=== PATIENT | male | born 1950 | race Caucasian/White ===

== ENCOUNTER 2016-10-07 12:31 | Inpatient (IN) | payer OTHER ==
[~2016-10-07] VITALS: Ht 170.2 cm; Wt 106.8 kg
[~2016-10-07 12:31] MED LIST: CARVEDILOL25 M1 PO; COMINH INH; GLIPIZIDE10 MG PO; HYDRALAZINE HYD50 MG PO; LASIX40 MG; LIPI20 PO; NEU300 PO; PROTONIX20 MG PO; TRAZODONE HYDR150 MG PO
[2016-10-07] MEDS ORDERED: CLONAZEPAM0.5 MG PO (13:15)
[2016-10-07] MEDS ORDERED: CATAPRES0.1 MG PO (13:16)
[2016-10-07] MEDS ORDERED: CARVEDILOL12.5 M1 PO (13:17)
[2016-10-07] MEDS ORDERED: HYDRALAZINE HCL25 MG PO (13:19)
[2016-10-07 13:51] LABS: BASOPHIL % 0.4 % (0-2); PLATELET COUNT 302 x10^3mcL (130-400)
[2016-10-07 13:59] LABS: CARBON DIOXIDE 32.1 mmol/L (21-32); POTASSIUM SERUM 4.3 mmol/L (3.5-5.1)
[2016-10-07 14:01] LABS: ALBUMIN 2.6 g/dL (3.4-5.0); BILIRUBIN TOTAL 0.22 mg/dL (0.20-1.00); TOTAL PROTEIN, SERUM 6.7 g/dL (6.4-8.2)
[2016-10-07 14:02] LABS: CALCIUM 5.5 mg/dL (8.5-10.1); CREATININE SERUM 5.1 mg/dL (0.7-1.3)
[2016-10-07 15:54] LABS: microscopic required? YES; urine erythrocyte 1+ (NEGATIVE)
[2016-10-07 16:09] LABS: T3 TOTAL 0.43 ng/mL
[2016-10-07 16:19] VITALS: BP 206/107
[2016-10-07 16:29] VITALS: Ht 170.2 cm; Wt 106.8 kg
[2016-10-07 16:37] LABS: AMPHETAMINE QUAL UR NONE DETECTED (NEG <=1000)
[2016-10-07 16:44] LABS: CHOLESTEROL/HDL RATIO 5.3
[2016-10-07 16:50] LABS: FREE T4 0.8 ng/dL (0.76-1.46); FREE THYROXINE INDEX 1.5 ug/dL (1.4-4.5); T4(THYROXINE) 4.3 ug/dL (4.7-13.3)
[2016-10-07 17:09] LABS: TOTAL IRON BINDING CAPACITY 261 ug/dL (250-450)
[2016-10-07 17:10] LABS: IRON 34 ug/dL (65-170)
[2016-10-07 18:18] VITALS: BP 190/102
[2016-10-07 20:52] VITALS: BP 177/91
[2016-10-07 21:57] VITALS: BP 190/102
[2016-10-08 05:37] VITALS: BP 140/77
[2016-10-08 06:09] LABS: CARBON DIOXIDE 34.1 mmol/L (21-32)
[2016-10-08 06:11] LABS: BASOPHIL % 0.6 % (0-2); PLATELET COUNT 276 x10^3mcL (130-400)
[2016-10-08 06:42] LABS: CREATININE SERUM 5.2 mg/dL (0.7-1.3)
[2016-10-08 06:43] LABS: CALCIUM 5.8 mg/dL (8.5-10.1)
[2016-10-08 06:45] LABS: RED CELL DISTRIBUTION WIDTH 16.4 % (11.5-14.5)
[2016-10-08 09:16] VITALS: BP 151/76
[2016-10-08 13:02] VITALS: BP 154/77
[2016-10-08 16:22] VITALS: BP 174/86
[2016-10-08 21:13] VITALS: BP 172/87
[2016-10-08 23:00] VITALS: BP 150/76
[2016-10-09 06:12] VITALS: BP 160/88
[2016-10-09 07:09] LABS: BASOPHIL % 0.6 % (0-2); PLATELET COUNT 259 x10^3mcL (130-400)
[2016-10-09 07:25] LABS: RED CELL DISTRIBUTION WIDTH 16.6 % (11.5-14.5)
[2016-10-09 07:26] LABS: CARBON DIOXIDE 33.3 mmol/L (21-32)
[2016-10-09 07:29] LABS: CALCIUM 5.8 mg/dL (8.5-10.1); CREATININE SERUM 5.3 mg/dL (0.7-1.3)
[2016-10-09 07:31] LABS: MAGNESIUM 1.9 mg/dL (1.8-2.4); PHOSPHOROUS 6.8 mg/dL (2.5-4.9)
[2016-10-09 09:09] VITALS: BP 150/77
[2016-10-09 17:43] VITALS: BP 127/60
[2016-10-09 22:06] VITALS: BP 164/84
[2016-10-10 06:17] LABS: CALCIUM 6.5 mg/dL (8.5-10.1); CARBON DIOXIDE 31.5 mmol/L (21-32); PHOSPHOROUS 5.9 mg/dL (2.5-4.9); POTASSIUM SERUM 4.3 mmol/L (3.5-5.1)
[2016-10-10 06:34] LABS: CREATININE SERUM 4.4 mg/dL (0.7-1.3)
[2016-10-10 06:47] LABS: BASOPHIL % 0.6 % (0-2); PLATELET COUNT 278 x10^3mcL (130-400)
[2016-10-10 06:51] LABS: RED CELL DISTRIBUTION WIDTH 16.4 % (11.5-14.5)
[2016-10-10 06:55] VITALS: BP 154/76
[2016-10-10 07:14] VITALS: BP 170/82
[2016-10-10 08:46] VITALS: BP 149/70
[2016-10-10 15:07] VITALS: BP 149/70
[2016-10-10 17:00] VITALS: BP 159/77
[2016-10-10 21:35] VITALS: BP 177/86
[2016-10-11 05:55] VITALS: BP 156/76
[2016-10-11 06:29] LABS: CALCIUM 7.6 mg/dL (8.5-10.1); CREATININE SERUM 3.7 mg/dL (0.7-1.3); PHOSPHOROUS 4.6 mg/dL (2.5-4.9); POTASSIUM SERUM 4.3 mmol/L (3.5-5.1)
[2016-10-11 08:02] LABS: BASOPHIL % 0.5 % (0-2); PLATELET COUNT 318 x10^3mcL (130-400); RED CELL DISTRIBUTION WIDTH 16.9 % (11.5-14.5)
[2016-10-11 09:21] VITALS: BP 169/84
[2016-10-11 09:21] LABS: calcium (part of PTHIC) 5.8 mg/dL (8.6-10.2)
[2016-10-11 13:05] VITALS: BP 162/76
[2016-10-11 13:06] VITALS: BP 112/60; BP 162/76
[2016-10-11 18:50] VITALS: BP 183/96
[2016-10-11 22:11] VITALS: BP 139/71
[2016-10-12 05:41] VITALS: BP 171/82
[2016-10-12 06:34] LABS: BASOPHIL % 0.5 % (0-2); PLATELET COUNT 321 x10^3mcL (130-400)
[2016-10-12 06:47] LABS: CARBON DIOXIDE 32.9 mmol/L (21-32); PHOSPHOROUS 3.8 mg/dL (2.5-4.9); POTASSIUM SERUM 4.2 mmol/L (3.5-5.1)
[2016-10-12 06:52] LABS: RED CELL DISTRIBUTION WIDTH 16.6 % (11.5-14.5)
[2016-10-12 10:00] VITALS: BP 137/62
[2016-10-12] MEDS ORDERED: CATAPRES0.1 MG PO (11:09)
[2016-10-12 11:32] LABS: VITAMIN D 25-HYDROXY 9.3 ng/mL (30.0-100.0)
[2016-10-12 17:23] VITALS: BP 126/75
[2016-10-12 17:25] VITALS: BP 126/75
[2016-10-12] MEDS ORDERED: BACO TOP (17:31)
[2016-10-12] MEDS ORDERED: HIBICLENS118 ML TOP (17:32)
[2016-10-12] MEDS ORDERED: TRAZODONE150 M1 PO (17:57)
== END 2016-10-12 19:05 | disposition home or self-care (01) | DRG 291 ==
LOC: ED 12:31 → DU 15:14 → MU 15:14 → DU 16:01 → MU 10-08 09:59
PROVIDERS: Emergency Medicine; Family Medicine; Internal Medicine; Internal Medicine Nephrology; Surgery; ADMIT Family Medicine
PROC: 05HM33Z Insertion of Infusion Device into Right Internal Jugular Vein, Percutaneous Approach (ICD-10-PCS; 2016-10-08)
PROC: B543ZZA Ultrasonography of Right Jugular Veins, Guidance (ICD-10-PCS; 2016-10-08)
PROC: B513ZZA Fluoroscopy of Right Jugular Veins, Guidance (ICD-10-PCS; 2016-10-11)
PROC: 05PYX3Z Removal of Infusion Device from Upper Vein, External Approach (ICD-10-PCS; 2016-10-11)
PROC: 05HM33Z Insertion of Infusion Device into Right Internal Jugular Vein, Percutaneous Approach (ICD-10-PCS; principal; 2016-10-11 16:30)
DX: I13.0 Hypertensive heart and chronic kidney disease with heart failure and stage 1 through stage 4 chronic kidney disease, or unspecified chronic kidney disease (principal); I50.43 Acute on chronic combined systolic (congestive) and diastolic (congestive) heart failure; N17.0 Acute kidney failure with tubular necrosis; E43 Unspecified severe protein-calorie malnutrition; N18.5 Chronic kidney disease, stage 5; D68.69 Other thrombophilia; E11.51 Type 2 diabetes mellitus with diabetic peripheral angiopathy without gangrene; E11.42 Type 2 diabetes mellitus with diabetic polyneuropathy; E11.65 Type 2 diabetes mellitus with hyperglycemia; E83.51 Hypocalcemia; I16.0 Hypertensive urgency; E78.5 Hyperlipidemia, unspecified; R31.9 Hematuria, unspecified; K21.9 Gastro-esophageal reflux disease without esophagitis; G47.00 Insomnia, unspecified; I87.2 Venous insufficiency (chronic) (peripheral); Z99.2 Dependence on renal dialysis; Z68.36 Body mass index [BMI] 36.0-36.9, adult; Z89.512 Acquired absence of left leg below knee; Z79.84 Long term (current) use of oral hypoglycemic drugs
CPT/HCPCS: 80307; 82962; 83880; 84439; 86580; 94150; A4301; C9113; J0610; J0885-EC; J1170; J1642; J1644; J1940; J2001; J2060; J2704; J3010; J3490; J7030; J7620; P9016; Q0092; Q0163

== ENCOUNTER 2017-01-11 17:10 | Inpatient (IN) | payer OTHER, MEDICAID ==
[~2017-01-11] VITALS: Ht 170.2 cm; Wt 124.7 kg
[~2017-01-11 17:10] MED LIST changes: +BACO TOP; +CARVEDILOL12.5 M1 PO; +CATAPRES0.1 MG PO; +CLONAZEPAM0.5 MG PO; +HIBICLENS118 ML TOP; +HYDRALAZINE HCL25 MG PO; +TRAZODONE150 M1 PO
[2017-01-11 17:58] LABS: PLATELET COUNT 293 x10^3mcL (130-400)
[2017-01-11 18:17] LABS: BILIRUBIN TOTAL 0.41 mg/dL (0.20-1.00); CALCIUM 7.1 mg/dL (8.5-10.1); CARBON DIOXIDE 27.3 mmol/L (21-32)
[2017-01-11 18:20] LABS: ALBUMIN 2.9 g/dL (3.4-5.0)
[2017-01-11 18:22] LABS: POTASSIUM SERUM 5.8 mmol/L (3.5-5.1)
[2017-01-11 18:23] LABS: CREATININE SERUM 4.1 mg/dL (0.7-1.3)
[2017-01-11 19:11] LABS: BAND NEUTROPHIL 19 % (0-10); BASOPHIL 0 % (0-2); MONOCYTE 4 % (0-7); SEGMENTED NEUTROPHILS 75 % (37-75)
[2017-01-11 19:12] LABS: rbc morphology (normal/abnorm) ABNORMAL (NORMAL)
[2017-01-11 19:13] LABS: target cell (codocyte) 1+
[2017-01-11] MEDS ORDERED: HYDRALAZINE HCL25 MG PO (19:57)
[2017-01-11] MEDS ORDERED: CATAPRES0.1 MG PO (19:57)
[2017-01-11 21:38] VITALS: BP 124/56
[2017-01-11 21:52] LABS: MAGNESIUM 1.6 mg/dL (1.8-2.4); PHOSPHOROUS 3.2 mg/dL (2.5-4.9)
[2017-01-11 21:53] LABS: CHOLESTEROL/HDL RATIO 2.9
[2017-01-11 21:59] VITALS: BP 124/56
[2017-01-11 22:00] LABS: FREE T4 0.76 ng/dL (0.76-1.46)
[2017-01-11 22:02] LABS: FREE THYROXINE INDEX 1.3 ug/dL (1.4-4.5)
[2017-01-12 04:35] LABS: UA SPECIFIC GRAVITY 1.015 (1.005-1.035); microscopic required? YES; urine erythrocyte 2+ (NEGATIVE)
[2017-01-12 06:06] VITALS: BP 138/68
[2017-01-12 06:34] LABS: CARBON DIOXIDE 28.3 mmol/L (21-32); MAGNESIUM 1.8 mg/dL (1.8-2.4); POTASSIUM SERUM 5.1 mmol/L (3.5-5.1)
[2017-01-12 10:18] VITALS: BP 123/63
[2017-01-12 12:02] LABS: T3 TOTAL 0.46 ng/mL
[2017-01-12 14:20] VITALS: BP 117/64
[2017-01-12 17:36] VITALS: BP 121/64
[2017-01-12 22:24] VITALS: BP 137/83
[2017-01-13 06:54] LABS: CALCIUM 7.4 mg/dL (8.5-10.1); CARBON DIOXIDE 25.4 mmol/L (21-32); CREATININE SERUM 3.4 mg/dL (0.7-1.3); POTASSIUM SERUM 4.9 mmol/L (3.5-5.1)
[2017-01-13 07:00] VITALS: BP 122/78
[2017-01-13 09:00] VITALS: BP 137/73
[2017-01-13 10:44] VITALS: BP 144/69
[2017-01-13 13:45] VITALS: BP 140/81
[2017-01-13 14:51] LABS: BASOPHIL % 0.5 % (0-2); PLATELET COUNT 201 x10^3mcL (130-400); RED CELL DISTRIBUTION WIDTH 14.8 % (11.5-14.5)
[2017-01-13] MEDS ORDERED: GLIPIZIDE10 M2 PO (18:00)
[2017-01-13] MEDS ORDERED: NOVAPLUS CLINDA1 SO1 IV (19:22)
[2017-01-13] MEDS ORDERED: LAC PO (19:22)
[2017-01-13] MEDS ORDERED: LEVOFLOXACIN I100 ML IV ×2 (19:22→19:27)
[2017-01-13 19:31] VITALS: BP 156/80
== END 2017-01-13 20:22 | DRG 871 ==
LOC: ED 17:10 → DU 20:54
PROVIDERS: Emergency Medicine; ADMIT Family Medicine
DX: A41.9 Sepsis, unspecified organism (principal); N18.6 End stage renal disease; I50.43 Acute on chronic combined systolic (congestive) and diastolic (congestive) heart failure; N17.0 Acute kidney failure with tubular necrosis; E43 Unspecified severe protein-calorie malnutrition; E87.1 Hypo-osmolality and hyponatremia; I13.2 Hypertensive heart and chronic kidney disease with heart failure and with stage 5 chronic kidney disease, or end stage renal disease; L03.115 Cellulitis of right lower limb; Z68.41 Body mass index [BMI] 40.0-44.9, adult; R65.20 Severe sepsis without septic shock; B96.20 Unspecified Escherichia coli [E. coli] as the cause of diseases classified elsewhere; E87.5 Hyperkalemia; E11.51 Type 2 diabetes mellitus with diabetic peripheral angiopathy without gangrene; E11.65 Type 2 diabetes mellitus with hyperglycemia; E11.40 Type 2 diabetes mellitus with diabetic neuropathy, unspecified; L89.321 Pressure ulcer of left buttock, stage 1; L89.311 Pressure ulcer of right buttock, stage 1; D63.8 Anemia in other chronic diseases classified elsewhere; K21.9 Gastro-esophageal reflux disease without esophagitis; G47.00 Insomnia, unspecified; E83.51 Hypocalcemia; Z89.512 Acquired absence of left leg below knee; Z99.2 Dependence on renal dialysis; Z79.84 Long term (current) use of oral hypoglycemic drugs
CPT/HCPCS: 82962; 83880; 84439; 97110-GP; 97116-GP; 97530-GP; J1956; J2405; J3490; J7030; J7040; Q0092

== ENCOUNTER 2017-06-11 12:48 | Emergency (ER) | payer OTHER ==
[~2017-06-11] VITALS: Ht 170.2 cm; Wt 102.0 kg
[~2017-06-11 12:48] MED LIST changes: +GLIPIZIDE10 M2 PO; +LAC PO; +LEVOFLOXACIN I100 ML IV; +NOVAPLUS CLINDA1 SO1 IV
[2017-06-11 12:51] VITALS: Ht 170.2 cm; Wt 102.0 kg
[2017-06-11 17:02] VITALS: BP 161/54
== END 2017-06-11 17:07 | disposition home or self-care (01) ==
LOC: ED 12:48
DX: S40.012A Contusion of left shoulder, initial encounter (principal); S09.90XA Unspecified injury of head, initial encounter; R11.2 Nausea with vomiting, unspecified; E11.40 Type 2 diabetes mellitus with diabetic neuropathy, unspecified; I10 Essential (primary) hypertension; Z88.1 Allergy status to other antibiotic agents; Z88.5 Allergy status to narcotic agent; Z99.2 Dependence on renal dialysis; V87.8XXA Person injured in other specified noncollision transport accidents involving motor vehicle (traffic), initial encounter; Y99.8 Other external cause status; Y93.55 Activity, bike riding; Y92.89 Other specified places as the place of occurrence of the external cause
CPT/HCPCS: Q0092

== ENCOUNTER 2018-06-25 16:46 | Inpatient (IN) | payer OTHER ==
[~2018-06-25] VITALS: Ht 170.2 cm; Wt 110.4 kg
[2018-06-25 19:41] VITALS: Ht 170.2 cm; Wt 110.4 kg
[2018-06-25 21:20] LABS: BILIRUBIN TOTAL 0.2 mg/dL (0.20-1.00); CALCIUM 6.8 mg/dL (8.5-10.1); CARBON DIOXIDE 26.3 mmol/L (21-32); TOTAL PROTEIN, SERUM 8.1 g/dL (6.4-8.2)
[2018-06-25 21:25] LABS: BASOPHIL % 0.2 % (0-2); PLATELET COUNT 254 x10^3mcL (130-400)
[2018-06-25 21:26] LABS: RED CELL DISTRIBUTION WIDTH 14.8 % (11.5-14.5)
[2018-06-25 21:27] LABS: ALBUMIN 3.2 g/dL (3.4-5.0); CREATININE SERUM 8.8 mg/dL (0.7-1.3); POTASSIUM SERUM 5.6 mmol/L (3.5-5.1)
[2018-06-25] MEDS ORDERED: AMLODIPINE BESYL5 M2 PO (22:04)
[2018-06-25] MEDS ORDERED: HYDRALAZINE HCL25 MG PO (22:05)
[2018-06-25] MEDS ORDERED: JANUVIA100 M1 PO (22:05)
[2018-06-26 00:24] VITALS: BP 155/70
[2018-06-26 05:32] VITALS: BP 126/63
[2018-06-26 06:26] LABS: BASOPHIL % 0.4 % (0-2); PLATELET COUNT 239 x10^3mcL (130-400)
[2018-06-26 06:39] LABS: RED CELL DISTRIBUTION WIDTH 14.6 % (11.5-14.5)
[2018-06-26 07:17] LABS: CALCIUM 6.6 mg/dL (8.5-10.1); CARBON DIOXIDE 26.5 mmol/L (21-32); MAGNESIUM 2.5 mg/dL (1.8-2.4); PHOSPHOROUS 8.2 mg/dL (2.5-4.9); POTASSIUM SERUM 4.4 mmol/L (3.5-5.1)
[2018-06-26 07:33] LABS: CREATININE SERUM 8.9 mg/dL (0.7-1.3)
[2018-06-26 09:29] VITALS: BP 102/67
[2018-06-26 13:14] VITALS: BP 172/81
[2018-06-26 16:51] VITALS: BP 190/98
[2018-06-26 21:24] VITALS: BP 107/71
[2018-06-27 06:12] VITALS: BP 121/90
[2018-06-27 09:48] VITALS: BP 116/51; BP 160/72
[2018-06-27 12:13] VITALS: BP 141/69
[2018-06-27 15:00] VITALS: BP 148/58
== END 2018-06-27 15:42 | disposition home or self-care (01) | DRG 280 ==
LOC: ED 16:46 → DU 23:34
PROVIDERS: Emergency Medicine; Internal Medicine Nephrology; ADMIT Internal Medicine
PROC: 5A1D70Z Performance of Urinary Filtration, Intermittent, Less than 6 Hours Per Day (ICD-10-PCS; principal; 2018-06-26)
PROC: 5A1D70Z Performance of Urinary Filtration, Intermittent, Less than 6 Hours Per Day (ICD-10-PCS; 2018-06-27)
DX: I21.4 Non-ST elevation (NSTEMI) myocardial infarction (principal); N18.6 End stage renal disease; I13.11 Hypertensive heart and chronic kidney disease without heart failure, with stage 5 chronic kidney disease, or end stage renal disease; E11.22 Type 2 diabetes mellitus with diabetic chronic kidney disease; E87.5 Hyperkalemia; I25.10 Atherosclerotic heart disease of native coronary artery without angina pectoris; Z99.2 Dependence on renal dialysis; Z91.15 Patient's noncompliance with renal dialysis
CPT/HCPCS: 82962; J2405; J2765; J7030; Q0092

== ENCOUNTER 2018-07-09 13:36 | Emergency (ER) | payer OTHER ==
[~2018-07-09] VITALS: Ht 172.7 cm; Wt 108.0 kg
[~2018-07-09 13:36] MED LIST changes: +AMLODIPINE BESYL5 M2 PO; +JANUVIA100 M1 PO
[2018-07-09 13:52] VITALS: Ht 172.7 cm; Wt 108.0 kg
[2018-07-09 17:54] VITALS: BP 184/88
== END 2018-07-09 17:54 | disposition home or self-care (01) ==
LOC: ED 13:36
DX: S39.012A Strain of muscle, fascia and tendon of lower back, initial encounter (principal); S16.1XXA Strain of muscle, fascia and tendon at neck level, initial encounter; S09.8XXA Other specified injuries of head, initial encounter; E11.40 Type 2 diabetes mellitus with diabetic neuropathy, unspecified; Z88.2 Allergy status to sulfonamides; Z88.1 Allergy status to other antibiotic agents; Z99.2 Dependence on renal dialysis; V89.2XXA Person injured in unspecified motor-vehicle accident, traffic, initial encounter; Y93.I9 Activity, other involving external motion; Y92.413 State road as the place of occurrence of the external cause; Y99.8 Other external cause status
CPT/HCPCS: J1885